=== PATIENT | female | born 1995 | race Caucasian/White ===

== ENCOUNTER 2022-10-17 00:53 | Emergency (ER) | payer OTHER, SELFPAY ==
[2022-10-17] VITALS (13 sets, daily range): BP systolic 116–127; BP diastolic 58–83; PULSE 62–81; RESP 18; TEMP 36.6; O2SAT 97–100; BMI 27.8
[2022-10-17 01:37] LABS: Add Manual Diff / Slide Review NO; Basophils Absolute Auto 0 /uL (0-100); Basophils Percent Auto 0.3 % (0-2); Eosinophils Absolute Auto 100 /uL (0-450); Eosinophils Percent Auto 0.5 % (2-4); Hematocrit 41.2 % (36-46); Hemoglobin 14.3 g/dL (12.0-16.0); Lymphocytes Absolute Auto 2500 /uL (1100-4500); Lymphocytes Percent Auto 22.7 % (25-40); Mean Corpuscular HGB Conc 34.7 % (30-36); Mean Corpuscular Hemoglobin 27.7 PG (26-34); Mean Corpuscular Volume 79.9 fL (80-100); Monocytes Absolute Auto 400 /uL (0-900); Neutrophils Absolute Auto 8000 /uL (1500-7000); Neutrophils Percent Auto 72.5 % (50-75); Platelet Count 293 X10^3/uL (150-400); Red Blood Cell Count 5.15 X10^6/uL (4.0-5.2); Red Cell Distribution Width 13.4 % (11.6-14.8); White Blood Cell Count 11.1 X10^3/uL (4.5-11.0)
[2022-10-17 01:37] LABS: Ictotest Urine Negative (Negative)
[2022-10-17 01:43] LABS: Bacteria Urine Few (2-10); RBC Urine None Seen (0-5/HPF)
[2022-10-17 01:44] LABS: Mucus Urine 2+ (Negative); Squamous Epithelial Cell Urine 5-10 /HPF (0-5/HPF); Transitional Epi Cells Urine 0-1/HPF (0-5/HPF); WBC Urine 5-10/HPF (0-5/HPF)
[2022-10-17 01:45] LABS: Culture Indicated Urine Specimen Cultured
[2022-10-17 01:48] LABS: Alanine Aminotransferase 27 IU/L (<35); Albumin 4.6 g/dL (3.5-5.0); Albumin Globulin Ratio 1.2 (1.0-2.8); Alkaline Phosphatase 69 U/L (38-126); Aspartate Aminotransferase 26 IU/L (14-36); BUN Creatinine Ratio 15.5 (6-22); Bilirubin Total 0.8 mg/dL (0.2-1.3); Blood Urea Nitrogen 11 mg/dL (7-17); Calcium 9.1 mg/dL (8.4-10.2); Carbon Dioxide 23 mmol/L (22-32); Chloride 102 mmol/L (98-107); Estimated Glomerular Filt Rate > 60 mL/min (>60); Globulin 3.8 g/dL (1.7-4.1); Glucose 112 mg/dL (70-100); HEMOLYSIS < 15 (0-50); Lipase 125 U/L (23-300); Potassium 3.9 mmol/L (3.4-5.1); Sodium 136 mmol/L (137-145); Total Protein 8.4 g/dL (6.3-8.2)
--- NOTE | 2022-10-17 03:50 | ED.ABDPAIN ---
HPI - Abdominal Pain General Chief Complaint: Abdominal Pain Stated Complaint: abd pain Time Seen by Provider: 10/17/22 03:48 Source: patient Mode of arrival: Ambulatory History of Present Illness HPI narrative: This is a 27-year-old female with no reported medical issues who presents with complaint of abdominal pain that has been going on for the past 5 days. She describes it as periumbilical not changing in location. It has been slowly worsening over time. In the last day she started feeling more nauseated and made herself vomit by sticking her finger down her throat 2 or 3 times. She states 1 time there is a small amount of blood on the 3rd attempt. She states that did not seem to help her symptoms and on the 3rd time meter abdominal pain little bit worse. She did not denies any back or flank pain. She states she has been having diarrhea, no black or blood that she is appreciated, it has been several times daily. No fevers or chills. No cold cough or congestive symptoms. No chest pain or shortness of breath. She denies any dysuria, urgency frequency, she denies any vaginal bleeding or discharge. She denies any recent sexual activity. Patient states she is not had similar symptoms in the past. She denies any daily medications. Denies any prior surgeries. No known drug allergies. No tobacco, occasional alcohol, no illicit. Patient tried some Tums at home without any improvement. Related Data Previous Rx's Medication Instructions Recorded tramadol 50 mg tablet 50 mg PO Q6H PRN pain #7 tabs 10/17/22 Allergies Allergy/AdvReac Type Severity Reaction Status Date / Time No Known Drug Allergies Allergy Verified 10/17/22 01:21 Review of Systems Review of Systems ROS Unobtainable: All systems reviewed & are unremarkable except as noted in HPI and below Patient History Social History Smoking Status: Never smoker Smoking Status: Never smoker alcohol intake frequency: a few times a month Substance Use Type: does not use Exam Narrative Exam Narrative: GENERAL: Alert and oriented x three, female in mild distress. HEENT: Head normocephalic, atraumatic, EOMI, pupils reactive, face symmetric, moist mucous membranes NECK: Supple, full range of motion CARDIOVASCULAR: Regular rate and rhythm without murmurs, rubs or gallops. RESPIRATORY: Breath sounds equal bilaterally, no wheezes rales or rhonchi. ABDOMEN: Soft, male and periumbilical pain. Normoactive bowel sounds all 4 quadrants. No guarding or rebound, rigidity, no mass, nondistended. : No CVA tenderness EXTREMITIES: Normal range of motion, no clubbing or edema. Neurovascularly intact NEUROLOGICAL: Cranial nerves II through XII grossly intact. Moving all extremities SKIN: Warm, dry, no petechiae, no rashes or lesions. Initial Vital Signs Initial Vital Signs: Vital Signs Temperature 98 F 10/17/22 01:05 Pulse Rate 72 10/17/22 01:05 Respiratory Rate 18 10/17/22 01:05 Blood Pressure 125/80 10/17/22 01:05 Pulse Oximetry 98 10/17/22 01:05 Oxygen Delivery Method Room Air 10/17/22 01:05 Course Orders Ordered: ED Orders 10/17/22 01:14 Ictotest Urine Stat Urine Culture Stat Urine Microscopic Stat 10/17/22 01:25 Complete Blood Count AUTO DIFF Stat Comprehensive Metabolic Panel Stat Lipase Stat 10/17/22 04:00 CT abdomen pelvis w con Stat Discontinued Medications Ketorolac Tromethamine (Ketorolac 30 Mg/Ml Vial) 15 mg IV NOW ONE Stop: 10/17/22 04:01 Last Admin: 10/17/22 04:12 Dose: 15 mg Documented By: GABBI Ondansetron HCl (Ondansetron 4 Mg/2 Ml Inj) 4 mg IV NOW PRN PRN Reason: Nausea And Vomiting Ondansetron HCl (Ondansetron 4 Mg Odt) 4 mg PO NOW PRN PRN Reason: Nausea And Vomiting Vital Signs Vital signs: Vital Signs - 8 hr 10/17/22 01:05 10/17/22 01:12 10/17/22 01:13 Temperature 98 F Pulse Rate 72 77 Respiratory Rate 18 Blood Pressure 125/80 125/83 Pulse Oximetry 98 99 Oxygen Delivery Method Room Air 10/17/22 01:13 10/17/22 02:15 10/17/22 02:17 Temperature Pulse Rate 73 69 67 Respiratory Rate Blood Pressure Pulse Oximetry 98 99 100 Oxygen Delivery Method Room Air 10/17/22 02:17 10/17/22 02:30 10/17/22 02:31 Temperature Pulse Rate 62 Respiratory Rate Blood Pressure 127/58 L 116/63 Pulse Oximetry 97 Oxygen Delivery Method Room Air 10/17/22 02:31 10/17/22 03:00 10/17/22 03:00 Temperature Pulse Rate 62 76 Respiratory Rate Blood Pressure 124/81 Pulse Oximetry 98 98 Oxygen Delivery Method Room Air 10/17/22 03:30 10/17/22 03:30 10/17/22 04:00 Temperature Pulse Rate 66 Respiratory Rate Blood Pressure 123/76 122/76 Pulse Oximetry 97 Oxygen Delivery Method Room Air 10/17/22 04:00 10/17/22 04:30 10/17/22 05:00 Temperature Pulse Rate 78 67 63 Respiratory Rate Blood Pressure Pulse Oximetry 99 97 98 Oxygen Delivery Method Room Air Room Air 10/17/22 05:40 10/17/22 05:30 Temperature Pulse Rate 81 Respiratory Rate Blood Pressure Pulse Oximetry 97 Oxygen Delivery Method Room Air MDM - Abdominal Pain Lab Data 10/17/22 01:25 10/17/22 01:25 Labs: Lab Results 10/17/22 10/17/22 10/17/22 Range/Units 01:14 01:14 01:25 WBC 11.1 H (4.5-11.0) X10^3/uL RBC 5.15 (4.0-5.2) X10^6/uL Hgb 14.3 (12.0-16.0) g/dL Hct 41.2 (36-46) % MCV 79.9 L (80-100) fL MCH 27.7 (26-34) PG MCHC 34.7 (30-36) % RDW 13.4 (11.6-14.8) % Plt Count 293 (150-400) X10^3/uL Neut % (Auto) 72.5 (50-75) % Lymph % (Auto) 22.7 L (25-40) % Travis % (Auto) 4.0 (3-14) % Eos % (Auto) 0.5 L (2-4) % Baso % (Auto) 0.3 (0-2) % Neut # (Auto) 8000 H (1947-8501) /uL Lymph # (Auto) 2500 (4110-8170) /uL Travis # (Auto) 400 (0-900) /uL Eos # (Auto) 100 (0-450) /uL Baso # (Auto) 0 (0-100) /uL Sodium (137-145) mmol/L Potassium (3.4-5.1) mmol/L Chloride (98-107) mmol/L Carbon Dioxide (22-32) mmol/L BUN (7-17) mg/dL Creatinine (0.52-1.04) mg/dL Estimated GFR (>60) mL/min BUN/Creatinine Ratio (6-22) Glucose (70-100) mg/dL Calcium (8.4-10.2) mg/dL Total Bilirubin (0.2-1.3) mg/dL AST (14-36) IU/L ALT (<35) IU/L Alkaline Phosphatase (38-126) U/L Total Protein (6.3-8.2) g/dL Albumin (3.5-5.0) g/dL Globulin (1.7-4.1) g/dL Albumin/Globulin Ratio (1.0-2.8) Lipase (23-300) U/L Ur Bilirubin Confirm Negative (Negative) Urine RBC None seen (0-5/HPF) Urine WBC 5-10/hpf H (0-5/HPF) Ur Squamous Epith Cells 5-10 /hpf H (0-5/HPF) Ur Transition Epith Cell 0-1/hpf (0-5/HPF) Urine Bacteria Few (2-10) H (None) Urine Mucus 2+ H (Negative) Ur Culture Indicated? Specimen cultured 10/17/22 Range/Units 01:25 WBC (4.5-11.0) X10^3/uL RBC (4.0-5.2) X10^6/uL Hgb (12.0-16.0) g/dL Hct (36-46) % MCV (80-100) fL MCH (26-34) PG MCHC (30-36) % RDW (11.6-14.8) % Plt Count (150-400) X10^3/uL Neut % (Auto) (50-75) % Lymph % (Auto) (25-40) % Travis % (Auto) (3-14) % Eos % (Auto) (2-4) % Baso % (Auto) (0-2) % Neut # (Auto) (5562-4534) /uL Lymph # (Auto) (5775-9500) /uL Travis # (Auto) (0-900) /uL Eos # (Auto) (0-450) /uL Baso # (Auto) (0-100) /uL Sodium 136 L (137-145) mmol/L Potassium 3.9 (3.4-5.1) mmol/L Chloride 102 (98-107) mmol/L Carbon Dioxide 23 (22-32) mmol/L BUN 11 (7-17) mg/dL Creatinine 0.71 (0.52-1.04) mg/dL Estimated GFR > 60 (>60) mL/min BUN/Creatinine Ratio 15.5 (6-22) Glucose 112 H (70-100) mg/dL Calcium 9.1 (8.4-10.2) mg/dL Total Bilirubin 0.8 (0.2-1.3) mg/dL AST 26 (14-36) IU/L ALT 27 (<35) IU/L Alkaline Phosphatase 69 (38-126) U/L Total Protein 8.4 H (6.3-8.2) g/dL Albumin 4.6 (3.5-5.0) g/dL Globulin 3.8 (1.7-4.1) g/dL Albumin/Globulin Ratio 1.2 (1.0-2.8) Lipase 125 (23-300) U/L Ur Bilirubin Confirm (Negative) Urine RBC (0-5/HPF) Urine WBC (0-5/HPF) Ur Squamous Epith Cells (0-5/HPF) Ur Transition Epith Cell (0-5/HPF) Urine Bacteria (None) Urine Mucus (Negative) Ur Culture Indicated? Point of care testing: Point of Care Testing Test Results Negative Urine Dip Bedside Urine Glucose Negative Bedside Urine Bilirubin + 1 Bedside Urine Ketone - Negative Urine Specific [place] 1.025 Bedside Urine Occult Blood - Negative Bedside Urine pH 6.0 Bedside Urine Protein - Negative Bedside Urine Urobilinogen - Negative Bedside Urine Nitrite - Negative Bedside Urine Leukocytes + [address] scan - abdomen/pelvis: Radiologist's Impression: Small umbilical hernia containing fat. Right ovary has created appearance likely related to an involuting corpus luteum cyst. Prominent uterine vessels can be seen in setting of pelvic congestion syndrome. Levoscoliosis. No evidence of colitis, diverticulitis, bowel obstruction, obstructive uropathy or acute appendicitis. MDM Narrative Medical decision making narrative: 19-year-old female who presents with complaint of increasing periumbilical pain for the past 5 days which has been progressively worsened. She is a white count of 11, hemoglobin of 14 with a crit of 41 platelets are 293. Low lymphocytes, auto count is 8000 and neutrophils. Sodium is 136 potassium is appropriate with normal CO2, BUN, creatinine and LFTs, protein high at 8.4 with a glucose of 112. Lipase is 125. Patient has negative urine . Positive for leuks, urobilinogen. 5-10 wbc's but 5-10 squamous epithelials with few bacteria. Patient's urine was cultured. Discussed with patient she is not having any active urinary symptoms, does not have any particular suprapubic tenderness so discussed with patient deferred pelvic exam as patient does not have a lot of high-risk factors in after discussion CT abdomen pelvis. This shows small umbilical hernia containing fat, right ovary crenated likely involuting corpus luteum cyst and prominent uterine vessels which can be seen in pelvic congestion syndrome. Discussed findings with patient she is most uncomfortable in the periumbilical area suspect this may be secondary to the fat containing hernia. Discussed with patient she states pain does seem to be much more in the periumbilical area. Suspect it maybe the fat containing but reviewed her other findings as well. Discussed return precautions. Discussed no heavy lifting would recommend follow up with General surgery. Discharge Plan Departure Patient Disposition: Home Clinical Impression: Hernia, umbilical Instructions: Abdominal Hernia Activity Restrictions/Additional Instructions: Your workup today does show a small fat containing umbilical hernia, this could be causing some of your pain. I would recommend you follow up with General surgery if this is persistently causing issues you may wish to have surgery to repair. Does also show some prominent uterine vessels which can be followed up with OBGYN pelvic ultrasound as needed. You may take pain medication as prescribed. This medication can make you sleepy do not drive, perform hazardous activities or make any major decisions while taking it. This medication will make you constipated please take a stool softener once to twice daily until stools are soft and regular. Prescription printed. Please return for fevers, rapidly worsening pain, new back or flank pain, a large lump or bulge in the abdomen that does not reduce or go away, persistent vomiting, black or bloody stools, lightheadedness or passing out or other new or concerning changes. Prescriptions: New tramadol 50 mg tablet 50 mg PO Q6H PRN (Reason: pain) Qty: 7 0RF Referrals: Judah Desai MD [Physician] - Provider,David SHARMA [Primary Care Provider] - Stand Alone Forms: Patient Portal/API
--- NOTE | 2022-10-17 04:00 | DI.CT.S_ITS ---
PROCEDURE: CT ABDOMEN PELVIS W CON INDICATIONS: abd pain x 5 days, periumbilical, + diarrhea TECHNIQUE: After the administration of IV contrast, axial sections were acquired from the lung bases to the pubic symphysis. Coronal and sagittal reformats were performed. For radiation dose reduction, the following was used: automated exposure control, adjustment of mA and/or kV according to patient size. COMPARISON: None. FINDINGS: Image quality: Excellent. Lung bases: Unremarkable. Heart: No significant findings. ABDOMEN: Liver: Unremarkable. Gallbladder: Unremarkable. Biliary ducts: Unremarkable. Pancreas: Unremarkable. Spleen: Unremarkable. Adrenal Glands: Unremarkable. Kidneys and Ureters: Unremarkable. Stomach and Bowel: Stomach, small bowel loops, and colon are unremarkable. Appendix is normal Peritoneum: No abnormal intraperitoneal fluid. No free air. Ventral Wall: No hernia. Abdominal Nodes: No retroperitoneal or mesenteric adenopathy by size criteria. Vessels: Aorta and inferior vena cava are normal in size. PELVIS: Pelvic Organs: There is a 1.3 cm rim enhancing cyst in the right ovary, most likely a corpus luteum. Uterus and ovaries are otherwise unremarkable. No pathological free-fluid in the cul-de-sac or adnexa. Bladder: Unremarkable. Pelvic Nodes: No enlarged lymph nodes. Miscellaneous: No inguinal hernias are seen. Bones: Scoliosis. IMPRESSION: 1. No acute abnormalities in abdomen or pelvis. 2. A corpus luteal cyst in the right ovary. No significant discrepancy with the night shift manager radiology preliminary report. Dictated by: Henok Boone M.D. on 10/17/2022 at 7:59 Approved by: Henok Boone M.D. on 10/17/2022 at 8:02
[2022-10-17] MEDS: KETOROLAC 30 MG/ML VIAL 15 MG IV (04:12)
== END 2022-10-17 05:40 | disposition home or self-care (01) ==
PROVIDERS: Emergency Provider Emergency Medicine
DX: K42.9 Umbilical hernia without obstruction or gangrene (principal)
CPT/HCPCS: 36415; 74177; 80053; 81003; 81015; 81025; 83690; 85025; 87086; 96374; 99284; J1885; Q9967

== ENCOUNTER → 2023-05-07 06:51 | Outpatient (CLI) | payer OTHER, SELFPAY ==
--- NOTE | 2023-05-07 06:53 | DI.US.S_ITS ---
PROCEDURE: US ABDOMEN LIMITED INDICATIONS: Umbilical hernia without obstruction or gangrene TECHNIQUE: Real-time scanning was performed of the abdominal and retroperitoneal organs, with image documentation. COMPARISON: None. FINDINGS: There is a fat containing umbilical hernia which is partially reducible. The neck measures 0.8 cm in diameter. IMPRESSION: Partially reducible fat containing umbilical hernia. Dictated by: Lianne Mendoza M.D. on 05/07/2023 at 9:49 Approved by: Lianne Mendoza M.D. on 05/07/2023 at 9:51
== END ==
LOC: US 06:52
PROVIDERS: Referring Provider Nurse Practitioner Family; Visit Provider Nurse Practitioner Family
DX: K42.9 Umbilical hernia without obstruction or gangrene (principal)
CPT/HCPCS: 76705